=== PATIENT | female | born 1955 | race Two or more races ===

== ENCOUNTER 2023-10-31 15:20 | Outpatient (CLI) | payer OTHER ==
[~2023-10-31 15:20] MED LIST: GILTUSS LIQUID237 M1 PO; ZITHROMAX500 MG PO
== END 2023-10-31 15:31 | disposition home or self-care (01) ==
LOC: LAB 15:20
PROVIDERS: ATTEND Specialist
DX: H02.403 Unspecified ptosis of bilateral eyelids (principal)